=== PATIENT | male | born 1990 | race Caucasian/White ===

== ENCOUNTER 2021-11-30 10:08 | Emergency (ER) | payer MEDICAID ==
[~2021-11-30] VITALS: Ht 170.2 cm; Wt 77.0 kg
[2021-11-30 10:27] VITALS: BP 133/90
== END 2021-11-30 18:38 | disposition left against medical advice (07) ==
LOC: ER 10:08
DX: K08.89 Other specified disorders of teeth and supporting structures (principal); Z53.21 Procedure and treatment not carried out due to patient leaving prior to being seen by health care provider